=== PATIENT | female | born 1955 | race Caucasian/White ===

== ENCOUNTER 2018-03-16 07:02 | Emergency (ER) | payer BC ==
[2018-03-16 07:21] VITALS: BP 119/72
--- NOTE | 2018-03-16 07:27 | UC ---
Eye Complaint HPI - HPI Summary HPI Summary: c/o right eye itching and drainage since yesterday morning. Yellow d/c, closed shut this morning. Blurry with drainage. Mild sore throat, no other sx. Does take routine medications for allergies and asthma. No rash, no ear pain. No c/ o sob / cp / palpitations. - History of Current Complaint Chief Complaint: UCEye Stated Complaint: EYE COMPLAINT Time Seen by Provider: 03/16/18 07:08 Hx Obtained From: Patient Pain Intensity: 98 - Allergies/Home Medications Allergies/Adverse Reactions: Allergies Allergy/AdvReac Type Severity Reaction Status Date / Time MS Iohexol [From Omnipaque] Allergy Severe Swelling Verified 12/15/13 19:11 Of Face,Lips,& Throat MS Shellfish Allergy Allergy Swelling Verified 12/15/13 13:45 [Shellfish Allergy] Of Face,Lips,& Throat MS Yellow Dye [Yellow Dye] Allergy Headache Verified 12/15/13 13:45 PMH/Surg Hx/FS Hx/Imm Hx Previously Healthy: Yes - Surgical History Surgical History: Yes Surgery Procedure, Year, and Place: HYSTERECTOMY 1985, L4-L5-S1 FUSION - Family History Known Family History: Positive: Unknown - Social History Occupation: Employed Full-time Alcohol Use: None Substance Use Type: None Smoking Status (MU): Never Smoked Tobacco Review of Systems Constitutional: Negative Skin: Negative Eyes: Other - see hpi ENT: Other - see hpi Respiratory: Negative Cardiovascular: Negative Gastrointestinal: Negative Genitourinary: Negative Motor: Negative Neurovascular: Negative Musculoskeletal: Negative Neurological: Negative Psychological: Negative Is Patient Immunocompromised?: No All Other Systems Reviewed And Are Negative: Yes Physical Exam Triage Information Reviewed: Yes Appearance: Well-Appearing, Well-Nourished Vital Signs: Initial Vital Signs Temp 97.1 F 03/16/18 07:10 Pulse 82 03/16/18 07:10 Resp 16 03/16/18 07:10 BP 119/72 03/16/18 07:10 Pulse Ox 98 03/16/18 07:10 Vital Signs Reviewed: Yes Eye Exam: Other Eyes: Positive: Conjunctiva Inflamed - R eye clear drainage, with some thicker crust in eyelid. Conjunc injected R eye. PERRLA EOMI. Conjunc ok L eye. ENT: Positive: Pharyngeal erythema - mild post redness. Trachea midline, TM dull - dull tm au. Neck exam: Normal Neck: Positive: Supple, Nontender, No Lymphadenopathy Respiratory Exam: Normal - no dyspnea, no tachypnea RR regular Cardiovascular Exam: Normal - HR regular. Nondiaphoretic. Abdominal Exam: Normal - no c/o's, sitting up Musculoskeletal Exam: Normal - moves x 4 ext's, gait steady Neurological Exam: Normal - grossly nonfocal Psychological Exam: Normal - conversing easily and appropriately Skin Exam: Normal - no visible or reported rash Eye Complaint Course/Dx - Course Course Of Treatment: Reviewed coa / tx plan. Questions as posed answered to the best of my ability. Will call bellhop this week, to check in. Will seek attention for worse or new problems. Questions as posed answered to the of my ability. - Differential Dx/Diagnosis Provider Diagnoses: R eye conjunctivitis. serous otitis Discharge - Sign-Out/Discharge Documenting (check all that apply): Patient Departure - Discharge Plan Condition: Stable Disposition: HOME Prescriptions: Moxifloxacin 0.5% OPHTH(NF) [Vigamox 0.5% OPHTH(NF)] 2 drop BOTH EYES TID #1 ophth.soln Olopatadine 0.1% OPHTH (NF) [Patanol 0.1% OPHTH (NF)] 2 drop BOTH EYES BID #1 btl Patient Education Materials: Serous Otitis Media (ED), Conjunctivitis (ED) Referrals: Brigida Pascual MD [Primary Care Provider] - Additional Instructions: Follow up with your primary care provider per routine. Please seek medical attention for any worse or new problems. Do not start patanol drops until your eye infection is completely gone. - Billing Disposition and Condition Condition: STABLE Disposition: Home
== END 2018-03-16 08:20 | disposition home or self-care (01) ==
LOC: UCEAST 07:02
DX: H10.9 Unspecified conjunctivitis (principal); H65.90 Unspecified nonsuppurative otitis media, unspecified ear; J02.9 Acute pharyngitis, unspecified; Z91.041 Radiographic dye allergy status; Z91.013 Allergy to seafood; Z91.048 Other nonmedicinal substance allergy status
CPT/HCPCS: 99212; G0463

== ENCOUNTER 2018-12-16 09:10 | Emergency (ER) | payer BC ==
[2018-12-16] MEDS ORDERED: Ibuprofen TAB* 600 MG PO ONE (10:20)
--- NOTE | 2018-12-16 10:22 | ED ---
Back Pain - HPI Summary HPI Summary: Patient is a 63-year-old female who presents emergency department for evaluation of back pain and left-sided rib pain after fall that occurred just prior to arrival. Patient states she slipped of the top of her steps and fell scraping back: Steps. She denies head injury or loss of consciousness. He denies associated shortness of breath. She denies numbness, tingling or weakness in extremities. Patient notes history of low back surgery and is concerned for new injury. Symptoms are mild in severity. Movement makes symptoms worse. Rest makes symptoms better. - History of Current Complaint Chief Complaint: EDFall Stated Complaint: FELL DOWN STAIRS/SHAKY/BACK/LEFT ARMPAIN PER PT Time Seen by Provider: 12/16/18 10:03 Hx Obtained From: Patient Pain Intensity: 5 - Allergies/Home Medications Allergies/Adverse Reactions: Allergies Allergy/AdvReac Type Severity Reaction Status Date / Time iohexol Allergy Swelling Verified 12/16/18 09:16 Of Face,Lips,& Throat shellfish derived Allergy Swelling Verified 12/16/18 09:16 Of Face,Lips,& Throat yellow dye AdvReac Headache Verified 12/16/18 09:16 PMH/Surg Hx/FS Hx/Imm Hx Previously Healthy: Yes Respiratory History: Reports: Hx Asthma Musculoskeletal History: Denies: Hx Osteoporosis - Cancer History Hx Chemotherapy: No Hx Radiation Therapy: No - Surgical History Surgery Procedure, Year, and Place: HYSTERECTOMY 1985, L4-L5-S1 FUSION Infectious Disease History: No Infectious Disease History: Denies: Traveled Outside the [place] in Last 30 Days - Family History Known Family History: Positive: Unknown, Non-Contributory - Social History Occupation: Works From/At Home Lives: With Family Alcohol Use: None Substance Use Type: Reports: None Smoking Status (MU): Never Smoked Tobacco Review of Systems Cardiovascular: Negative Negative: Palpitations, Chest Pain Respiratory: Negative Negative: Shortness Of Breath Positive: Nausea. Negative: Abdominal Pain, Vomiting Positive: Other - back pain, left rib pain Positive: Bruising Neurological: Negative Negative: Headache, Weakness, Paresthesia, Numbness, Syncope All Other Systems Reviewed And Are Negative: Yes Physical Exam Triage Information Reviewed: Yes Vital Signs On Initial Exam: Initial Vitals Temp Pulse Resp BP Pulse Ox 97.8 F 91 18 151/92 97 12/16/18 09:13 12/16/18 09:13 12/16/18 09:13 12/16/18 09:13 12/16/18 09:13 Vital Signs Reviewed: Yes Appearance: Positive: Well-Appearing - Pt. lying in bed, appears uncomfortable with tears. present. Skin: Positive: Warm, Dry Head/Face: Positive: Normal Head/Face Inspection Eyes: Positive: Normal, EOMI, ANITA Neck: Positive: Supple, Nontender - No midline tenderness Respiratory/Lung Sounds: Positive: Clear to Auscultation, Breath Sounds Present Cardiovascular: Positive: Normal, RRR Abdomen Description: Positive: Nontender, Soft Musculoskeletal: Positive: Other - Full ROM of left arm without pain. 5/5 strength in bilaterl LEs. Area of ecchymosis and abrasion to upper lumbar pain. Midline tenderness to lower T spine as well. Left lower lateral rib tenderness Neurological: Positive: Normal, CN Intact II-III Psychiatric: Positive: Affect/Mood Appropriate - [place] Coma Scale Best Eye Response: 4 - Spontaneous Best Motor Response: 6 - Obeys Commands Best Verbal Response: 5 - Oriented Coma Scale Total: 15 Diagnostics - Vital Signs Vital Signs Temp Pulse Resp BP Pulse Ox 12/16/18 09:13 97.8 F 91 18 151/92 97 - Laboratory Lab Statement: Any lab studies that have been ordered have been reviewed, and results considered in the medical decision making process. Back Pain Course/Dx - Course Course Of Treatment: Patient presenting for the above injuries after falling down steps. She is well-appearing with stable vital signs. Neurological deficits on exam. Patient was given a dose of ibuprofen. X-rays obtained of ribs and back and are negative for acute findings, reading per radiology. Results were discussed. Advised ice 24 hours and switch to heat. To follow-up with PCP if pain persists return the ER if symptoms change or worsen. Patient understands and agrees with plan. - Diagnoses Differential Diagnosis/HQI/PQRI: Positive: Fracture, Strain, Sprain Provider Diagnoses: Abrasion of back, Lumbar sprain, Thoracic sprain, Rib contusion Discharge - Sign-Out/Discharge Documenting (check all that apply): Patient Departure Patient Received Moderate/Deep Sedation with Procedure: No - Discharge Plan Condition: Good Disposition: HOME Patient Education Materials: Contusion in Adults (ED), Rib Contusion (ED) Referrals: Brigida Pascual MD [Primary Care Provider] - Additional Instructions: Follow up with PCP if pain persist Ibuprofen or Tylenol as directed for pain Ice affected areas intermittently for 24 hours, then switch to warm compresses Return to ER if symptoms change or worsen - Billing Disposition and Condition Condition: GOOD Disposition: Home
[2018-12-16 12:19] VITALS: BP 148/81
== END 2018-12-16 12:18 | disposition home or self-care (01) ==
LOC: ED 09:10
DX: S30.810A Abrasion of lower back and pelvis, initial encounter (principal); S20.219A Contusion of unspecified front wall of thorax, initial encounter; M54.9 Dorsalgia, unspecified; S33.5XXA Sprain of ligaments of lumbar spine, initial encounter; R07.81 Pleurodynia; R11.0 Nausea; W10.9XXA Fall (on) (from) unspecified stairs and steps, initial encounter; Y92.9 Unspecified place or not applicable
CPT/HCPCS: 72070; 72110; 99282; A9270-GY